=== PATIENT | female | born 1935 | race Caucasian/White ===

== ENCOUNTER → 2016-10-28 | Outpatient (CLI) | payer MEDICARE, BC ==
[2016-10-28 08:39] LABS: CHLORIDE,CL 105 mmol/L (98-110); SODIUM,NA 139 mmol/L (136-146)
== END ==
LOC: MW.CHIM 07:47
PROVIDERS: ATTEND Internal Medicine
DX: I10 Essential (primary) hypertension (principal); E03.9 Hypothyroidism, unspecified; I35.0 Nonrheumatic aortic (valve) stenosis; F41.8 Other specified anxiety disorders
CPT/HCPCS: 36415; 80053; 80061; 84443; 85025; 99214

== ENCOUNTER 2017-03-03 14:20 | Emergency (ER) | payer MEDICARE, BC ==
[2017-03-03] MEDS ORDERED: Sodium Chloride 0.9% 10 ML Syringe FLUSH PRN (14:36)
[2017-03-03] MEDS ORDERED: Sodium Chloride 0.9% 2.5 ML Syringe FLUSH PRN (14:36)
--- NOTE | 2017-03-03 14:38 | EDM.PDOC ---
ED HPI GENERAL MEDICAL PROBLEM - General Chief Complaint: Cardiovascular Problem Stated Complaint: HEART IS SKIPPING BEAT Time Seen by Provider: 03/03/17 14:44 Source of Information: Reports: Patient History Limitations: Reports: No Limitations - History of Present Illness INITIAL COMMENTS - FREE TEXT/NARRATIVE: HISTORY AND PHYSICAL: []81-year-old female presenting with heart skipping beats History of Present Illness: [] Patient has long history of missed beats. 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 Last echocardiogram was in October and no abnormalities were noted Patient had rheumatic fever as a baby and has had this murmurs difficulty of her since Review of Systems: As per history of present illness and below otherwise all systems reviewed and negative. Past medical history: As per history of present illness and as reviewed below otherwise noncontributory. Surgical history: As per history of present illness and as reviewed below otherwise noncontributory. Social history: No reported history of drug or alcohol abuse. Family history: As per history of present illness and as reviewed below otherwise noncontributory. Physical exam: HEENT: Atraumatic, normocehpalic, pupils reactive, negative for conjunctival pallor or scleral icterus, mucous membranes moist, throat clear, neck supple, nontender, trachea midline. Lungs: Clear to auscultation, breath sounds equal bilaterally, chest non tender. Heart: S1S2, regular, negative for clicks, rubs, or JVD. Abdomen: Soft, nondistended, nontender. Negative for masses or hepatossplenmegaly. Negative for costovertebral tenderness. Pelvis: Stable nontender. Genitourinary: Deferred. Rectal: Deferred Extremities: Atraumatic, negative for cords or calf pain. Neurovascular unremarkable. Neuro: Awake, alert, oriented. Cranial nerves II through XII unremarkable. Cerebellum unremarkable. Motor and sensory unremarkable throughout. Exam nonfocal. Discussed with patient and daughter that all of her lab work is fairly unremarkable. Her BNP is slightly elevated to 54 however she is already on Lasix. Diagnostics: [CBC CMP amylase lipase troponin chest x-ray] Therapeutics: [] Impression: [Heart palpitations resolved] Plan: []Follow-up with your primary care provider In 2 days Return if you having worsening symptoms any shortness of breath Definitive disposition and diagnosis as appropriate pending reevaluation and review of above. - Related Data Allergies Allergy/AdvReac Type Severity Reaction Status Date / Time niacin Allergy Cannot Verified 03/03/17 14:43 Remember tetanus toxoid, adsorbed Allergy Cannot Verified 03/03/17 14:43 Remember Home Meds: Home Meds Aspirin [Adult Low Dose Aspirin EC] 1 tab PO DAILY 11/26/14 [History] Levothyroxine Sodium [Synthroid] 1 tab PO DAILY 11/26/14 [History] Losartan [Cozaar] 1 tab PO DAILY 11/26/14 [History] Metoprolol Tartrate [Lopressor] 1 tab PO DAILY 11/26/14 [History] amLODIPine Besylate [Amlodipine Besylate] 1 tab PO DAILY 11/26/14 [History] atorvaSTATin [Lipitor] 20 mg PO BEDTIME 11/26/14 [History] Furosemide [Lasix] 20 mg PO ASDIRECTED PRN 07/20/15 [History] Past Medical History Cardiovascular History: Reports: Cardiomyopathy, Heart Murmur, Hypertension Other Cardiovascular History: [place] 2009 - Past Surgical History Cardiovascular Surgical History: Reports: Carotid Stents Social & Family History - Family History Family Medical History: Noncontributory - Tobacco Use Smoking Status *Q: Never Smoker - Recreational Drug Use Recreational Drug Use: No ED ROS GENERAL - Review of Systems Review Of Systems: ROS reveals no pertinent complaints other than HPI. ED EXAM, GENERAL - Physical Exam Exam: See Below (See dictation) Course - Vital Signs Last Recorded V/S: Last Vital Signs Temp 36.4 C 03/03/17 14:20 Pulse 64 03/03/17 14:20 Resp 18 03/03/17 14:20 BP 126/56 L 03/03/17 14:20 Pulse Ox 97 03/03/17 14:20 - Orders/Labs/Meds Orders: Active Orders 24 hr Category Date Time Status EKG Documentation Completion [RC] STAT Care 03/03/17 14:36 Active UA W/MICROSCOPIC [URIN] Stat Lab 03/03/17 14:37 Uncollected Sodium Chloride 0.9% [Saline Flush] Med 03/03/17 14:36 Active 10 ml FLUSH ASDIRECTED PRN Sodium Chloride 0.9% [Saline Flush] Med 03/03/17 14:36 Active 2.5 ml FLUSH ASDIRECTED PRN Saline Lock Insert [OM.PC] Stat Oth 03/03/17 14:36 Ordered Medication Orders Sodium Chloride (Saline Flush) 10 ml FLUSH ASDIRECTED PRN PRN Reason: Keep Vein Open Sodium Chloride (Saline Flush) 2.5 ml FLUSH ASDIRECTED PRN PRN Reason: Keep Vein Open Labs: Laboratory Tests 03/03/17 03/03/17 03/03/17 Range/Units 14:55 14:55 14:55 WBC 4.84 (4.0-11.0) K/uL RBC 4.58 (4.30-5.90) M/uL Hgb 13.4 (12.0-16.0) g/dL Hct 39.1 (36.0-46.0) % MCV 85.4 (80.0-98.0) fL MCH 29.3 (27.0-32.0) pg MCHC 34.3 (31.0-37.0) g/dL RDW Std Deviation 42.4 (28.0-62.0) fl RDW Coeff of Sarah 14 (11.0-15.0) % Plt Count 155 (150-400) K/uL MPV 12.20 H (7.40-12.00) fL Neut % (Auto) 45.4 L (48.0-80.0) % Lymph % (Auto) 42.6 H (16.0-40.0) % [place] % (Auto) 9.3 (0.0-15.0) % Eos % (Auto) 1.9 (0.0-7.0) % Baso % (Auto) 0.8 (0.0-1.5) % Neut # (Auto) 2.2 (1.4-5.7) K/uL Lymph # (Auto) 2.1 (0.6-2.4) K/uL [place] # (Auto) 0.5 (0.0-0.8) K/uL Eos # (Auto) 0.1 (0.0-0.7) K/uL Baso # (Auto) 0.0 (0.0-0.1) K/uL Nucleated RBC % 0.0 /100WBC Nucleated RBCs # 0 K/uL Sodium 138 (136-146) mmol/L Potassium 4.0 (3.5-5.1) mmol/L Chloride 105 (98-110) mmol/L Carbon Dioxide 22 (21-31) mmol/L BUN 10 (6.0-23.0) mg/dL Creatinine 0.7 (0.6-1.5) mg/dL Est Cr Clr Drug Dosing 49.01 mL/min Estimated GFR (MDRD) > 60.0 ml/min Glucose 155 H (60-110) mg/dL Calcium 9.6 (8.8-10.8) mg/dL Total Bilirubin 0.7 (0.1-1.5) mg/dL AST 23 (5-40) IU/L ALT 18 (8-54) IU/L Alkaline Phosphatase 80 (40-150) Troponin I (0.0-0.29) NG/ML B-Natriuretic Peptide 254 H (<100) PG/ML Total Protein 7.0 (6.0-8.0) g/dL Albumin 4.4 (3.4-4.8) g/dL Globulin 2.6 (2.0-3.5) g/dL Albumin/Globulin Ratio 1.7 (1.3-2.8) Lipase 18 (7-80) U/L 03/03/17 Range/Units 14:55 WBC (4.0-11.0) K/uL RBC (4.30-5.90) M/uL Hgb (12.0-16.0) g/dL Hct (36.0-46.0) % MCV (80.0-98.0) fL MCH (27.0-32.0) pg MCHC (31.0-37.0) g/dL RDW Std Deviation (28.0-62.0) fl RDW Coeff of Sarah (11.0-15.0) % Plt Count (150-400) K/uL MPV (7.40-12.00) fL Neut % (Auto) (48.0-80.0) % Lymph % (Auto) (16.0-40.0) % [place] % (Auto) (0.0-15.0) % Eos % (Auto) (0.0-7.0) % Baso % (Auto) (0.0-1.5) % Neut # (Auto) (1.4-5.7) K/uL Lymph # (Auto) (0.6-2.4) K/uL [place] # (Auto) (0.0-0.8) K/uL Eos # (Auto) (0.0-0.7) K/uL Baso # (Auto) (0.0-0.1) K/uL Nucleated RBC % /100WBC Nucleated RBCs # K/uL Sodium (136-146) mmol/L Potassium (3.5-5.1) mmol/L Chloride (98-110) mmol/L Carbon Dioxide (21-31) mmol/L BUN (6.0-23.0) mg/dL Creatinine (0.6-1.5) mg/dL Est Cr Clr Drug Dosing mL/min Estimated GFR (MDRD) ml/min Glucose (60-110) mg/dL Calcium (8.8-10.8) mg/dL Total Bilirubin (0.1-1.5) mg/dL AST (5-40) IU/L ALT (8-54) IU/L Alkaline Phosphatase (40-150) Troponin I < 0.10 (0.0-0.29) NG/ML B-Natriuretic Peptide (<100) PG/ML Total Protein (6.0-8.0) g/dL Albumin (3.4-4.8) g/dL Globulin (2.0-3.5) g/dL Albumin/Globulin Ratio (1.3-2.8) Lipase (7-80) U/L Meds: Medications Generic Name Dose Route Start Last Admin Trade Name Freq PRN Reason Stop Dose Admin Sodium Chloride 10 ml 03/03/17 14:36 Saline Flush FLUSH ASDIRECTED PRN Keep Vein Open Sodium Chloride 2.5 ml 03/03/17 14:36 Saline Flush FLUSH ASDIRECTED PRN Keep Vein Open Departure - Departure Time of Disposition: 15:56 Disposition: Home, Self-Care 01 Condition: Good Clinical Impression: Heart palpitations Referrals: PCP,None [Primary Care Provider] - Forms: ED Department Discharge - My Orders Last 24 Hours: My Active Orders 03/03/17 14:36 EKG Documentation Completion [RC] STAT Sodium Chloride 0.9% [Saline Flush] 10 ml FLUSH ASDIRECTED PRN Sodium Chloride 0.9% [Saline Flush] 2.5 ml FLUSH ASDIRECTED PRN Saline Lock Insert [OM.PC] Stat 03/03/17 14:37 UA W/MICROSCOPIC [URIN] Stat - Assessment/Plan Last 24 Hours: My Active Orders 03/03/17 14:36 EKG Documentation Completion [RC] STAT Sodium Chloride 0.9% [Saline Flush] 10 ml FLUSH ASDIRECTED PRN Sodium Chloride 0.9% [Saline Flush] 2.5 ml FLUSH ASDIRECTED PRN Saline Lock Insert [OM.PC] Stat 03/03/17 14:37 UA W/MICROSCOPIC [URIN] Stat
[2017-03-03 15:32] LABS: CHLORIDE,CL 105 mmol/L (98-110); SODIUM,NA 138 mmol/L (136-146)
--- NOTE | 2017-03-03 15:49 | CR ---
EXAMINATION: Portable chest radiograph. HISTORY: Shortness of breath. Comparison: 07/20/2015. FINDINGS: The trachea is midline. The cardiomediastinal silhouette is within normal limits. No pulmonary infilt rates, effusions or pneumothorax. Aortic calcifications are noted. Osseous structures appear unremarkable. IMPRESSION: No acute cardiopulmonary process.
[2017-03-03 17:31] VITALS: BP 154/99
== END 2017-03-03 16:15 | disposition home or self-care (01) ==
LOC: MW.ED 14:20
DX: R00.2 Palpitations (principal); I11.9 Hypertensive heart disease without heart failure; I25.2 Old myocardial infarction; Z95.5 Presence of coronary angioplasty implant and graft; Z79.82 Long term (current) use of aspirin; Z79.899 Other long term (current) drug therapy; Z88.7 Allergy status to serum and vaccine; Z88.8 Allergy status to other drugs, medicaments and biological substances
CPT/HCPCS: 36415; 71010; 71010-26; 80053; 83690; 83880; 84484; 85025; 93005; 99282; 99285-25

== ENCOUNTER 2019-03-15 11:38 | Emergency (ER) | payer BC, MEDICARE ==
[2019-03-15] MEDS ORDERED: Sodium Chloride 0.9% 10 ML Syringe FLUSH PRN (11:53)
[2019-03-15] MEDS ORDERED: Sodium Chloride 0.9% 2.5 ML Syringe FLUSH PRN (11:53)
--- NOTE | 2019-03-15 11:53 | EDM.PDOC ---
ED HPI GENERAL MEDICAL PROBLEM - General Chief Complaint: Cardiovascular Problem Stated Complaint: FAST HEART RATE Time Seen by Provider: 03/15/19 11:41 Source of Information: Reports: Patient History Limitations: Reports: No Limitations - History of Present Illness INITIAL COMMENTS - FREE TEXT/NARRATIVE: History of present illness: []Patient started having patient's last night. She awoke and did not feel well so she came to the ER. Patient denies any chest pain, shortness of breath, headache, dizziness, lightheadedness, nausea, vomiting, fevers or chills. Review of systems: As per history of present illness and below otherwise all systems reviewed and negative. Past medical history: As per history of present illness and as reviewed below otherwise noncontributory. Surgical history: As per history of present illness and as reviewed below otherwise noncontributory. Social history: No reported history of drug or alcohol abuse. Family history: As per history of present illness and as reviewed below otherwise noncontributory. Physical exam: General: Well developed, well nourished in NAD HEENT: Atraumatic, normocephalic, pupils reactive, negative for conjunctival pallor or scleral icterus, mucous membranes moist, throat clear, neck supple, nontender, trachea midline. Lungs: Clear to auscultation, breath sounds equal bilaterally, chest nontender. Heart: S1S2, regular, negative for clicks, rubs, or JVD. Abdomen: NABS, Soft, nondistended, nontender. Negative for masses or hepatosplenomegaly. Negative for costovertebral tenderness. Pelvis: Stable nontender. Genitourinary: Deferred. Rectal: Deferred. Extremities: Atraumatic, negative for cords or calf pain. Neurovascular unremarkable. Neuro: Awake, alert. Cranial nerves II through XII unremarkable. Cerebellum unremarkable. Motor and sensory unremarkable throughout. Exam nonfocal. Skin:warm and dry Diagnostics: EKG shows A. fib with RVR 130s and hypotensive at 97 systolic. CBC, chemistry, troponin+0.098, chest x-ray Therapeutics: IV fluid bolus, diltiazem, aspirin ED Course: improved Impression: afib with RVR Prescriptions: none Plan: transfer to [facility], Dr. Leger accepts Definitive disposition and diagnosis as appropriate pending reevaluation and review of above. - Related Data Allergies Allergy/AdvReac Type Severity Reaction Status Date / Time niacin Allergy Cannot Verified 03/15/19 11:42 Remember tetanus toxoid, adsorbed Allergy Cannot Verified 03/15/19 11:42 Remember Home Meds: Home Meds . 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: Endocrine/Metabolic History: Reports: Hypothyroidism - Infectious Disease History Infectious Disease History: Reports: Chicken Pox, Measles - Past Surgical History Cardiovascular Surgical History: Reports: Carotid Stents Social & Family History - Family History Family Medical History: Noncontributory - Tobacco Use Smoking Status *Q: Never Smoker - Caffeine Use Caffeine Use: Reports: Coffee - Recreational Drug Use Recreational Drug Use: No ED ROS GENERAL - Review of Systems Review Of Systems: See Below ED EXAM, GENERAL - Physical Exam Exam: See Below Course - Vital Signs Last Recorded V/S: Last Vital Signs Temp 97.0 F 03/15/19 11:40 Pulse 64 03/15/19 12:38 Resp 18 03/15/19 12:38 BP 104/47 L 03/15/19 12:38 Pulse Ox 100 03/15/19 12:38 - Orders/Labs/Meds Orders: Active Orders 24 hr Category Date Time Status Cardiac Monitoring [RC] . DIRECTED Care 03/15/19 11:53 Active EKG Documentation Completion [RC] STAT Care 03/15/19 11:53 Active Oxygen Therapy, ED [RC] ASDIRECTED Care 03/15/19 11:53 Active B-TYPE NATRIURETIC PEPTIDE,BNP [CHEM] Stat Lab 03/15/19 11:56 Received Sodium Chloride 0.9% [Normal Saline] 1,000 ml Med 03/15/19 12:15 Active IV ASDIRECTED Sodium Chloride 0.9% [Saline Flush] Med 03/15/19 11:53 Active 10 ml FLUSH ASDIRECTED PRN Sodium Chloride 0.9% [Saline Flush] Med 03/15/19 11:53 Active 2.5 ml FLUSH ASDIRECTED PRN Saline Lock Insert [OM.PC] Stat Oth 03/15/19 11:53 Ordered Medication Orders Sodium Chloride (Normal Saline) 1,000 mls @ 125 mls/hr IV ASDIRECTED TAY Last Admin: 03/15/19 12:24 Dose: 125 mls/hr Sodium Chloride (Saline Flush) 10 ml FLUSH ASDIRECTED PRN PRN Reason: Keep Vein Open Sodium Chloride (Saline Flush) 2.5 ml FLUSH ASDIRECTED PRN PRN Reason: Keep Vein Open Labs: Laboratory Tests 03/15/19 03/15/19 03/15/19 Range/Units 11:56 11:56 11:56 WBC 7.78 (4.0-11.0) K/uL RBC 5.00 (4.30-5.90) M/uL Hgb 13.9 (12.0-16.0) g/dL Hct 42.5 (36.0-46.0) % MCV 85.0 (80.0-98.0) fL MCH 27.8 (27.0-32.0) pg MCHC 32.7 (31.0-37.0) g/dL RDW Std Deviation 48.4 (28.0-62.0) fl RDW Coeff of Sarah 16 H (11.0-15.0) % Plt Count 256 (150-400) K/uL MPV 13.00 H (7.40-12.00) fL Neut % (Auto) 59.4 (48.0-80.0) % Lymph % (Auto) 29.8 (16.0-40.0) % [place] % (Auto) 8.4 (0.0-15.0) % Eos % (Auto) 1.5 (0.0-7.0) % Baso % (Auto) 0.9 (0.0-1.5) % Neut # (Auto) 4.6 (1.4-5.7) K/uL Lymph # (Auto) 2.3 (0.6-2.4) K/uL [place] # (Auto) 0.7 (0.0-0.8) K/uL Eos # (Auto) 0.1 (0.0-0.7) K/uL Baso # (Auto) 0.1 (0.0-0.1) K/uL Nucleated RBC % 0.0 /100WBC Nucleated RBCs # 0 K/uL INR 1.09 Sodium 141 (136-145) mmol/L Potassium 3.6 (3.5-5.1) mmol/L Chloride 100 (98-107) mmol/L Carbon Dioxide 21.9 (21.0-32.0) mmol/L BUN 8 (7.0-18.0) mg/dL Creatinine 1.0 (0.6-1.0) mg/dL Est Cr Clr Drug Dosing 35.98 mL/min Estimated GFR (MDRD) 52.8 ml/min Glucose 168 H (74-106) mg/dL Calcium 9.6 (8.5-10.1) mg/dL Total Bilirubin 1.0 (0.2-1.0) mg/dL AST 31 (15-37) IU/L ALT 19 (14-63) IU/L Alkaline Phosphatase 117 H (46-116) U/L Troponin I 0.098 H* (0.000-0.056) ng/mL Total Protein 8.0 (6.4-8.2) g/dL Albumin 4.4 (3.4-5.0) g/dL Globulin 3.6 (2.6-4.0) g/dL Albumin/Globulin Ratio 1.2 (0.9-1.6) Meds: Medications Generic Name Dose Route Start Last Admin Trade Name Freq PRN Reason Stop Dose Admin Sodium Chloride 1,000 mls @ 125 mls/hr 03/15/19 12:15 03/15/19 12:24 Normal Saline IV 125 mls/hr ASDIRECTED TAY Administration Sodium Chloride 10 ml 03/15/19 11:53 Saline Flush FLUSH ASDIRECTED PRN Keep Vein Open Sodium Chloride 2.5 ml 03/15/19 11:53 Saline Flush FLUSH ASDIRECTED PRN Keep Vein Open Discontinued Medications Generic Name Dose Route Start Last Admin Trade Name Freq PRN Reason Stop Dose Admin Aspirin 324 mg 03/15/19 13:09 03/15/19 13:19 Aspirin PO 03/15/19 13:10 324 mg ONETIME ONE Administration Diltiazem HCl 20 mg 03/15/19 12:14 03/15/19 12:20 Diltiazem IVPUSH 03/15/19 12:15 10 mg ONETIME ONE Administration Sodium Chloride 500 mls @ 999 mls/hr 03/15/19 11:55 03/15/19 12:10 Normal Saline IV 03/15/19 12:25 Not Given .Bolus ONE Departure - Departure Time of Disposition: 13:53 Disposition: DC/Tfer to Acute Hospital 02 Reason for Transfer *Q: Other Condition: Good Clinical Impression: Atrial fibrillation with rapid ventricular response Referrals: PCP,Unknown [Primary Care Provider] - Forms: ED Department Discharge - My Orders Last 24 Hours: My Active Orders 03/15/19 11:53 Cardiac Monitoring [RC] . DIRECTED EKG Documentation Completion [RC] STAT Oxygen Therapy, ED [RC] ASDIRECTED Sodium Chloride 0.9% [Saline Flush] 10 ml FLUSH ASDIRECTED PRN Sodium Chloride 0.9% [Saline Flush] 2.5 ml FLUSH ASDIRECTED PRN Saline Lock Insert [OM.PC] Stat 03/15/19 11:56 B-TYPE NATRIURETIC PEPTIDE,BNP [CHEM] Stat 03/15/19 12:15 Sodium Chloride 0.9% [Normal Saline] 1,000 ml IV ASDIRECTED - Assessment/Plan Last 24 Hours: My Active Orders 03/15/19 11:53 Cardiac Monitoring [RC] . DIRECTED EKG Documentation Completion [RC] STAT Oxygen Therapy, ED [RC] ASDIRECTED Sodium Chloride 0.9% [Saline Flush] 10 ml FLUSH ASDIRECTED PRN Sodium Chloride 0.9% [Saline Flush] 2.5 ml FLUSH ASDIRECTED PRN Saline Lock Insert [OM.PC] Stat 03/15/19 11:56 B-TYPE NATRIURETIC PEPTIDE,BNP [CHEM] Stat 03/15/19 12:15 Sodium Chloride 0.9% [Normal Saline] 1,000 ml IV ASDIRECTED
[2019-03-15] MEDS ORDERED: Sodium Chloride 0.9% 500 ML IV ONE (11:55)
[2019-03-15] MEDS ORDERED: Diltiazem 25 MG/5 ML SDV IVPUSH ONE (12:14)
[2019-03-15] MEDS ORDERED: Sodium Chloride 0.9% 1,000 ML IV SCH (12:15)
[2019-03-15 12:50] LABS: CARBON DIOXIDE,CO2 21.9 mmol/L (21.0-32.0); POTASSIUM,K 3.6 mmol/L (3.5-5.1)
[2019-03-15] MEDS ORDERED: Aspirin 81 MG Tab.Chew PO ONE (13:09)
--- NOTE | 2019-03-15 13:12 | CR ---
Chest: Portable view of the chest was obtained. Comparison: Prior chest x-ray of 03/03/17. Findings: Heart size slightly enlarged. Tortuous thoracic aorta is seen. Pulmonary vessel show slight congestion. Lungs otherwise are clear. Bony structures are grossly intact. Impression: Slightly enlarged heart with mild pulmonary vascular congestion. Diagnostic code #3 MTDD
[2019-03-15 14:31] VITALS: BP 119/48; PULSE 60
== END 2019-03-15 14:20 ==
LOC: MW.ED 11:38
DX: I48.91 Unspecified atrial fibrillation (principal); E03.9 Hypothyroidism, unspecified; I25.2 Old myocardial infarction; Z88.8 Allergy status to other drugs, medicaments and biological substances; Z88.7 Allergy status to serum and vaccine
CPT/HCPCS: 36415; 71045; 80053; 83880; 84484; 85025; 85610; 93005; 96361; 96374; 99285; A9270; J3490; J7040

== ENCOUNTER 2019-10-25 21:22 | Observation (INO) | payer MEDICARE, OTHER ==
--- NOTE | 2019-10-25 22:15 | EDM.PDOC ---
ED HPI GENERAL MEDICAL PROBLEM - General Chief Complaint: General Stated Complaint: EMS ARRIVAL Time Seen by Provider: 10/25/19 21:23 - History of Present Illness INITIAL COMMENTS - FREE TEXT/NARRATIVE: 84-year-old female presents after her daughter came home and found her covered in feces and feces all over her dwelling. According to daughter, she was incontinent of both urine and stool today this is a new symptom for her. Daughter reports 6 months or more of increasing confusion and inability to complete daily tasks. She often does repetitive activities like stacking silverware. She moves furniture into bizarre places. She does not answer the phone. She refuses to see a doctor. The daughter has been trying to spend more time with her to take care of her but ultimately the patient still lives alone. Tonight the daughter found the patient with large volume of feces in her living area. This was the last straw. The patient's daughter feels like she can no longer take care of the patient. She had already been in contact with facilities in my note with a contact name Jaymie Recio. Also Elise here in town from [facility]. The patient herself has no complaints. She denies any fever, chills, nausea, vomiting, chest pain, shortness of breath, pain with urination, headache, recent falls. Treatments DISTRIBUTION DRIVER: Reports: Other (see below) Other Treatments DISTRIBUTION DRIVER: blood sugar - Related Data Allergies Allergy/AdvReac Type Severity Reaction Status Date / Time niacin Allergy Cannot Verified 10/25/19 21:41 Remember tetanus toxoid, adsorbed Allergy Cannot Verified 10/25/19 21:41 Remember Home Meds: Home Meds . 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 ED EXAM, GENERAL - Physical Exam Exam: See Below Free Text/Narrative:: General: No acute distress. Comfortable. Heent: Examination revealed no pallor, no icterus, no lymphadenopathy. The patient has normal posterior pharynx, moist mucous membranes. Neck: Supple. No JVD. No rigidity. Heart: Normal rate. Reg rhythm. No murmurs appreciated. Lungs: Bilaterally clear to auscultation. No focal findings. Abdomen: Nontender, non-distended, soft, no CVA tenderness. Neuro: Pt is moving all four extremities. EOMI. PERRL. Normal speech. Patient does not know her daughter's birthday, the president, or the month. She is vaguely aware of where she is. Skin: Exposed areas appeared normally perfused, warm, normal color with no meaningful rashes or lesions. Extremities: Peripheral examination revealed no pedal edema. Peripheral pulses were 2+. Course - Vital Signs Last Recorded V/S: Last Vital Signs Temp 96.6 F L 10/25/19 21:25 Pulse 74 10/25/19 22:00 Resp 19 10/25/19 22:00 BP 139/70 10/25/19 22:00 Pulse Ox 96 10/25/19 22:00 - Orders/Labs/Meds Orders: Active Orders 24 hr Category Date Time Status Admission Status [Patient Status] [ADT] Stat ADT 10/25/19 23:13 Ordered Head wo Cont [CT] Stat Exams 10/25/19 23:15 Ordered AMMONIA VENOUS [CHEM] Stat Lab 10/25/19 22:25 Received UA W/CARO RFLX IF INDICATED [URIN] Stat Lab 10/25/19 21:51 Ordered Labs: Laboratory Tests 10/25/19 10/25/19 Range/Units 22:25 22:25 WBC 7.72 (4.0-11.0) K/uL RBC 4.15 L (4.30-5.90) M/uL Hgb 12.5 (12.0-16.0) g/dL Hct 37.8 (36.0-46.0) % MCV 91.1 (80.0-98.0) fL MCH 30.1 (27.0-32.0) pg MCHC 33.1 (31.0-37.0) g/dL RDW Std Deviation 48.9 (28.0-62.0) fl RDW Coeff of Sarah 15 (11.0-15.0) % Plt Count 114 L (150-400) K/uL Neut % (Auto) 64.9 (48.0-80.0) % Lymph % (Auto) 23.3 (16.0-40.0) % [place] % (Auto) 11.1 (0.0-15.0) % Eos % (Auto) 0.3 (0.0-7.0) % Baso % (Auto) 0.4 (0.0-1.5) % Neut # (Auto) 5.0 (1.4-5.7) K/uL Lymph # (Auto) 1.8 (0.6-2.4) K/uL [place] # (Auto) 0.9 H (0.0-0.8) K/uL Eos # (Auto) 0.0 (0.0-0.7) K/uL Baso # (Auto) 0.0 (0.0-0.1) K/uL Nucleated RBC % 0.0 /100WBC Nucleated RBCs # 0 K/uL Sodium 141 (136-145) mmol/L Potassium 3.7 (3.5-5.1) mmol/L Chloride 101 (98-107) mmol/L Carbon Dioxide 30.3 (21.0-32.0) mmol/L BUN 21 H (7.0-18.0) mg/dL Creatinine 0.9 (0.6-1.0) mg/dL Est Cr Clr Drug Dosing TNP Estimated GFR (MDRD) 59.5 ml/min Glucose 98 (74-106) mg/dL Calcium 8.9 (8.5-10.1) mg/dL Magnesium 2.3 (1.8-2.4) mg/dL Total Bilirubin 0.7 (0.2-1.0) mg/dL AST 29 (15-37) IU/L ALT 27 (14-63) IU/L Alkaline Phosphatase 65 (46-116) U/L Total Protein 7.1 (6.4-8.2) g/dL Albumin 3.9 (3.4-5.0) g/dL Globulin 3.2 (2.6-4.0) g/dL Albumin/Globulin Ratio 1.2 (0.9-1.6) Departure - Departure Time of Disposition: 23:05 Disposition: [facility] Condition: Fair Clinical Impression: Dementia Qualifiers: Dementia type: unspecified type Dementia behavioral disturbance: with behavioral disturbance Qualified Code(s): F03.91 - Unspecified dementia with behavioral disturbance - Discharge Information Referrals: PCP,None [Primary Care Provider] - Forms: ED Department Discharge Sepsis Event Note - Evaluation Sepsis Screening Result: No Definite Risk - Focused Exam Vital Signs: Vital Signs Temp Pulse Resp BP Pulse Ox 10/25/19 22:00 74 19 139/70 96 10/25/19 21:45 77 19 107/68 96 10/25/19 21:25 96.6 F L 79 21 H 113/65 92 L Date Exam was Performed: 10/25/19 Time Exam was Performed: 23:22 - My Orders Last 24 Hours: My Active Orders 10/25/19 21:51 UA W/CARO RFLX IF INDICATED [URIN] Stat 10/25/19 22:25 AMMONIA VENOUS [CHEM] Stat 10/25/19 23:13 Admission Status [Patient Status] [ADT] Stat 10/25/19 23:15 Head wo Cont [CT] Stat - Assessment/Plan Last 24 Hours: My Active Orders 10/25/19 21:51 UA W/CARO RFLX IF INDICATED [URIN] Stat 10/25/19 22:25 AMMONIA VENOUS [CHEM] Stat 10/25/19 23:13 Admission Status [Patient Status] [ADT] Stat 10/25/19 23:15 Head wo Cont [CT] Stat
[2019-10-25 22:53] LABS: BLOOD UREA NITROGEN,BUN 21 mg/dL (7.0-18.0); CARBON DIOXIDE,CO2 30.3 mmol/L (21.0-32.0); CHLORIDE,CL 101 mmol/L (98-107); GLUCOSE RANDOM 98 mg/dL (74-106); POTASSIUM,K 3.7 mmol/L (3.5-5.1); SODIUM,NA 141 mmol/L (136-145)
--- NOTE | 2019-10-25 23:50 | CT ---
INDICATION: altered mental status CT HEAD WITHOUT CONTRAST TECHNIQUE: Multiple axial CT images were performed through the head without intravenous contrast administration. COMPARISON: No previous studies are currently available for comparison. FINDINGS: No acute intracranial hemorrhage is identified. No extra-axial collections are evident and there is no mass effect or midline shift. There is mild diffuse age-related brain atrophy. Ventricular size and configuration are within normal limits for the patient`s age. [place]ana-white differentiation is within normal limits. There is patchy hypodensity in the periventricular white matter, a nonspecific finding which most likely reflects chronic small vessel ischemic change. Intracranial atherosclerotic vascular calcifications are noted. Osseous structures are within normal limits and no fractures are seen. Included portions of the paranasal sinuses and mastoid air cells are normally aerated. IMPRESSION: 1. No acute intracranial abnormality identified. 2. Mild age-related brain atrophy, white matter hypodensity consistent with chronic small vessel ischemic change, and intracranial atherosclerotic vascular calcifications. MILENA TALAVERA MD [facility] Dictated by: Phil Talavera MD @ 10/25/2019 23:50:13 (Electronically Signed)
--- NOTE | 2019-10-26 08:50 | PCM.HP.2 ---
<Veronique Gee - Last Filed: 10/26/19 10:30> H&P History of Present Illness - General Date of Service: 10/26/19 Admit Problem/Dx: Admission Diagnosis/Problem Admission Diagnosis/Problem Dementia - History of Present Illness Initial Comments - Free Text/Narative: The patient is a 84 year old female with past medical history dementia, CAD, cardiomyopathy, and HTN who was brought in by daughter last night after she found her confused and with stool all over the house. Per the daughter over the last year, she has seen a decline in her mother. She has been trying to stack silverware around the house to tidy up, pulling pictures out of frames and albums, turning off the heat in the winter, not answering the phones, not always recognizing the daughter, and not flushing the toilet causing them to backup. Looking for her parents and . Daughter reports she feeds herself, but doesn't cook, doesn't use stove/oven, will eat straight out of the can. Daughter handles finances. Daughter is unsure which medications she takes. They are delivered in the mail. Daughter reports many bottles at home, thinks the patient just takes them when she needs them. Daughter has been in touch with adult protective services and a Alzheimer unit in [place]. Daughter thinks she may have thyroid disorder. When speaking with the patient this morning, she states she feels fine and doesn't know why she is here. She thinks things are going fine at home. She is only oriented to person. She states she wants to be DNR/DNI. The daughter confirmed this. In the ER, work up revealed no leukocytosis, anemia, major electrolyte abnormalities, ammonia level within normal limits. Head CT showed no acute intracranial findings. - Related Data Allergies/Adverse Reactions: Allergies Allergy/AdvReac Type Severity Reaction Status Date / Time niacin Allergy Cannot Verified 10/26/19 01:51 Remember tetanus toxoid, adsorbed Allergy Cannot Verified 10/26/19 01:51 Remember Home Medications: Home Meds Levothyroxine Sodium [Synthroid] 75 mcg PO DAILY 10/26/19 [History] atorvaSTATin [Lipitor] 20 mg PO DAILY 10/26/19 [History] Past Medical History - Past Health History Medical/Surgical History: Denies Medical/Surgical History (unable to fully obtain due to mental status) HEENT History: Reports: Cataract Cardiovascular History: Reports: Cardiomyopathy, Heart Murmur, Hypertension, ME Other Cardiovascular History: ME 2010 [employer] History: Reports: Psychiatric History: Reports: Dementia Endocrine/Metabolic History: Reports: Hypothyroidism - Infectious Disease History Infectious Disease History: Reports: Chicken Pox, Measles - Past Surgical History Cardiovascular Surgical History: Reports: Carotid Stents Social & Family History - Family History Family Medical History: Noncontributory - Tobacco Use Smoking Status *Q: Never Smoker Used Tobacco, but Quit: Yes Month/Year Tobacco Last Used: per daughter pt quit "a long time ago" Second Hand Smoke Exposure: No - Caffeine Use Caffeine Use: Reports: None - Recreational Drug Use Recreational Drug Use: No H&P Review of Systems - Review of Systems: Review Of Systems: See Below General: Reports: No Symptoms HEENT: Reports: No Symptoms Pulmonary: Reports: No Symptoms Cardiovascular: Reports: No Symptoms Gastrointestinal: Reports: No Symptoms Genitourinary: Reports: No Symptoms Musculoskeletal: Reports: No Symptoms Skin: Reports: No Symptoms Psychiatric: Reports: No Symptoms Neurological: Reports: No Symptoms Hematologic/Lymphatic: Reports: No Symptoms Immunologic: Reports: No Symptoms Exam - Exam Exam: See Below - Vital Signs Vital Signs: Last Vital Signs Temp 98.8 F 10/26/19 05:29 Pulse 72 10/26/19 05:29 Resp 18 10/26/19 05:29 BP 141/66 H 10/26/19 05:29 Pulse Ox 98 10/26/19 05:29 Weight: 53.66 kg - Exam General: Alert, Cooperative. No: Oriented Lungs: Clear to Auscultation, Normal Respiratory Effort Cardiovascular: Regular Rate, Regular Rhythm GI/Abdominal Exam: Normal Bowel Sounds, Soft, Non-Tender Extremities: No Pedal Edema Skin: Warm, Dry, Intact Neuro Extensive - Mental Status: Alert, Other (oriented to person only) Psychiatric: Alert, Normal Affect, Normal Mood - Patient Data Lab Results Last 24 hrs: Laboratory Results - last 24 hr 10/25/19 10/25/19 10/25/19 Range/Units 22:25 22:25 22:25 WBC 7.72 (4.0-11.0) K/uL RBC 4.15 L (4.30-5.90) M/uL Hgb 12.5 (12.0-16.0) g/dL Hct 37.8 (36.0-46.0) % MCV 91.1 (80.0-98.0) fL MCH 30.1 (27.0-32.0) pg MCHC 33.1 (31.0-37.0) g/dL RDW Std Deviation 48.9 (28.0-62.0) fl RDW Coeff of Sarah 15 (11.0-15.0) % Plt Count 114 L (150-400) K/uL Neut % (Auto) 64.9 (48.0-80.0) % Lymph % (Auto) 23.3 (16.0-40.0) % [place] % (Auto) 11.1 (0.0-15.0) % Eos % (Auto) 0.3 (0.0-7.0) % Baso % (Auto) 0.4 (0.0-1.5) % Neut # (Auto) 5.0 (1.4-5.7) K/uL Lymph # (Auto) 1.8 (0.6-2.4) K/uL [place] # (Auto) 0.9 H (0.0-0.8) K/uL Eos # (Auto) 0.0 (0.0-0.7) K/uL Baso # (Auto) 0.0 (0.0-0.1) K/uL Nucleated RBC % 0.0 /100WBC Nucleated RBCs # 0 K/uL Sodium 141 (136-145) mmol/L Potassium 3.7 (3.5-5.1) mmol/L Chloride 101 (98-107) mmol/L Carbon Dioxide 30.3 (21.0-32.0) mmol/L BUN 21 H (7.0-18.0) mg/dL Creatinine 0.9 (0.6-1.0) mg/dL Est Cr Clr Drug Dosing TNP Estimated GFR (MDRD) 59.5 ml/min Glucose 98 (74-106) mg/dL Calcium 8.9 (8.5-10.1) mg/dL Magnesium 2.3 (1.8-2.4) mg/dL Total Bilirubin 0.7 (0.2-1.0) mg/dL AST 29 (15-37) IU/L ALT 27 (14-63) IU/L Alkaline Phosphatase 65 (46-116) U/L Ammonia <17 L (19-54) ug/dL Total Protein 7.1 (6.4-8.2) g/dL Albumin 3.9 (3.4-5.0) g/dL Globulin 3.2 (2.6-4.0) g/dL Albumin/Globulin Ratio 1.2 (0.9-1.6) Result Diagrams: 10/25/19 22:25 10/25/19 22:25 Sepsis Event Note - Evaluation Sepsis Screening Result: No Definite Risk - Focused Exam Vital Signs: Vital Signs Temp Pulse Resp BP Pulse Ox 10/26/19 05:29 98.8 F 72 18 141/66 H 98 10/26/19 01:06 98.2 F 73 18 112/64 97 10/25/19 23:57 97.9 F 69 18 116/67 98 10/25/19 22:00 74 19 139/70 96 10/25/19 21:45 77 19 107/68 96 10/25/19 21:25 96.6 F L 79 21 H 113/65 92 L Date Exam was Performed: 10/26/19 Time Exam was Performed: 10:30 Problem List Initiated/Reviewed/Updated: Yes Orders Last 24hrs: Active Orders 24 hr Category Date Time Status Admission Status [Patient Status] [ADT] Stat ADT 10/25/19 23:13 Active Antiembolic Devices [RC] PER UNIT ROUTINE Care 10/26/19 01:00 Active Oxygen Therapy [RC] PRN Care 10/26/19 01:00 Active VTE/DVT Education [RC] PER UNIT ROUTINE Care 10/26/19 01:00 Active Vital Signs [RC] Q4H Care 10/26/19 01:00 Active Regular Diet [DIET] Diet 10/26/19 Breakfast Active BASIC METABOLIC PANEL,BMP [CHEM] AM Lab 10/26/19 05:11 Ordered CBC WITH AUTO DIFF [HEME] AM Lab 10/26/19 05:11 Ordered TSH [CHEM] Routine Lab 10/26/19 08:28 Ordered UA W/CARO RFLX IF INDICATED [URIN] Stat Lab 10/25/19 21:51 Ordered Sequential Compression Device [OM.PC] Per Unit Routine Oth 10/26/19 01:00 Ordered Assessment/Plan Comment:: 1. Admit for observation 2. Code status- DNR/DNI 3. Vitals per routine 4. I/Os per routine 5. Diet- regular 6. DVT prophylaxis with SCDs 7. Confusion- work up thus far has been negative. UA pending. Daughter thinks there may be a history of hypothyroidism- will check TSH. 8. Inability to perform ADLs- working with daughter and case management on discharge planning. Will get COVID test in case she gets admitted to [facility]. <Jim Marcum - Last Filed: 10/28/19 19:03> H&P History of Present Illness - General Admit Problem/Dx: Admission Diagnosis/Problem Admission Diagnosis/Problem Dementia Exam - Vital Signs Vital Signs: Last Vital Signs Temp 37.0 C 10/27/19 11:30 Pulse 75 10/27/19 11:30 Resp 16 10/27/19 11:30 BP 101/53 L 10/27/19 11:30 Pulse Ox 95 10/27/19 11:30 - Patient Data Result Diagrams: 10/25/19 22:25 10/25/19 22:25 - Free Text/Narrative Note: I have seen and examined the patient. I have discussed findings and treatment plan with resident. I agree with the assessment and plan as outlined in the following note.
[2019-10-27] MEDS ORDERED: Haloperidol Lactate 5 MG/ML SDV IM PRN (00:08)
[2019-10-27] MEDS ORDERED: Levothyroxine 75 MCG Tab PO SCH (07:30)
--- NOTE | 2019-10-27 08:31 | PCM.DCSUM1 ---
<Veronique Gee - Last Filed: 10/27/19 08:28> Discharge Summary - Hospital Course HPI Initial Comments: Admission Date: 10/25/19 Discharge Date: 10/27/19 Admission Diagnosis: 1. Confusion 2. Inability to perform ADL Discharge Diagnosis: 1. Confusion 2. Inability to perform ADL Procedures: None Consults: None Hospital Course: The patient is a 84 year old female with past medical history of dementia, CAD, cardiomyopathy, and HTN who was brought in by daughter after she found her confused and with stool all over the house. Per the daughter over the last year, she has seen a decline in her mother. In the ER, work up revealed no leukocytosis, anemia, or major electrolyte abnormalities, and ammonia level within normal limits. Head CT showed no acute intracranial findings. She was admitted to the medical floor for observation. Patient is oriented to person only. She refused IV and blood draws. UA was obtained and showed no sign of infection. She did have an episode of sundowning where she became very agitated and required Haldol. We worked with the daughter and case management to find placement. The daughter had already been working with [facility] in [place] and requested she be placed there. COIVD testing was done and negative. Patient requires ambulance transfer to [facility] due to confusion. Disposition: [facility] in [place] Discharge Condition: vitals stable, tolerating oral diet, ambulating without difficulty. Discharge Instructions: regular diet as tolerated, activity as tolerated, take medications as prescribed. Symptoms to report to physician include fever/chills , chest pain, shortness of breath, abdominal pain, erythema, drainage/discharge , worsening confusion, or not improving as expected. Discharge Medications: Follow-up: - Discharge Data Discharge Date: 10/27/19 Discharge Disposition: DC/Tfer to SNF 03 Condition: Fair - Referral to Home Health Primary Care Physician: PCP None - Patient Instructions Diet: Regular Diet as Tolerated Activity: As Tolerated Showering/Bathing: May Shower Notify Provider of: Fever, Increased Pain, Swelling and Redness, Drainage, Nausea and/or Vomiting Other/Special Instructions: Additional symptoms include chest pain, shortness of breath, or abdominal pain. - Discharge Plan *PRESCRIPTION DRUG MONITORING PROGRAM REVIEWED*: No *COPY OF PRESCRIPTION DRUG MONITORING REPORT IN PATIENT ANTHONY: No Home Medications: Home Meds Levothyroxine Sodium [Synthroid] 75 mcg PO DAILY 10/26/19 [History] atorvaSTATin [Lipitor] 20 mg PO DAILY 10/26/19 [History] Referrals: PCP,None [Primary Care Provider] - - Discharge Summary/Plan Comment DC Time >30 min.: No - Patient Data Vitals - Most Recent: Last Vital Signs Temp 99.1 F 10/26/19 20:00 Pulse 87 10/26/19 20:00 Resp 18 10/26/19 20:00 BP 127/59 L 10/26/19 20:00 Pulse Ox 95 10/26/19 20:00 Weight - Most Recent: 53.66 kg I&O - Last 24 hours: Intake & Output 10/26/19 10/27/19 10/27/19 22:59 06:59 14:59 Intake Total 1390 350 Output Total 200 200 Balance 1190 150 Lab Results - Last 24 hrs: Laboratory Results - last 24 hr 10/26/19 10/26/19 Range/Units 09:47 10:55 Urine Color DARK YELLOW Urine Appearance CLEAR Urine pH 6.0 (5.0-8.0) Ur Specific [place] 1.020 (1.001-1.035) Urine Protein NEGATIVE (NEGATIVE) mg/dL Urine Glucose (UA) NEGATIVE (NEGATIVE) mg/dL Urine Ketones NEGATIVE (NEGATIVE) mg/dL Urine Occult Blood NEGATIVE (NEGATIVE) Urine Nitrite NEGATIVE (NEGATIVE) Urine Bilirubin NEGATIVE (NEGATIVE) Urine Urobilinogen 1.0 (<2.0) EU/dL Ur Leukocyte Esterase NEGATIVE (NEGATIVE) SARS-CoV-2 RNA (RT-PCR) NEGATIVE (NEGATIVE) Med Orders - Current: Current Medications Atorvastatin Calcium (Lipitor) 20 mg PO BEDTIME TAY Haloperidol Lactate (Haldol) 1 - 5 mg IM Q6H PRN PRN Reason: Agitation Last Admin: 10/27/19 00:27 Dose: 5 mg Levothyroxine Sodium (Levothyroxine) 75 mcg PO ACBREAKFAST TAY Discontinued Medications Amlodipine Besylate (Norvasc) 5 mg PO DAILY TAY <Jim Marcum - Last Filed: 10/28/19 19:08> Discharge Summary - Referral to Home Health Primary Care Physician: PCP None - Patient Data Vitals - Most Recent: Last Vital Signs Temp 37.0 C 10/27/19 11:30 Pulse 75 10/27/19 11:30 Resp 16 10/27/19 11:30 BP 101/53 L 10/27/19 11:30 Pulse Ox 95 10/27/19 11:30 Med Orders - Current: Current Medications Discontinued Medications Amlodipine Besylate (Norvasc) 5 mg PO DAILY TAY Atorvastatin Calcium (Lipitor) 20 mg PO BEDTIME TAY Haloperidol Lactate (Haldol) 1 - 5 mg IM Q6H PRN PRN Reason: Agitation Last Admin: 10/27/19 00:27 Dose: 5 mg Levothyroxine Sodium (Levothyroxine) 75 mcg PO ACBREAKFAST TAY Last Admin: 10/27/19 10:27 Dose: 75 mcg - Free Text/Narrative Note: I have seen and examined the patient. I have discussed findings and treatment plan with resident. I agree with the assessment and plan as outlined in the following note.
[2019-10-27] MEDS ORDERED: amLODIPine 5 MG Tab PO SCH (09:00)
[2019-10-27 11:32] VITALS: BP 101/53; PULSE 75
[2019-10-27] MEDS ORDERED: atorvaSTATin 20 MG Tab PO SCH (21:00)
== END 2019-10-27 12:10 ==
LOC: MW.ED 21:22 → MW.MS 23:13
PROVIDERS: ADMIT Internal Medicine; ATTEND Internal Medicine
DX: R41.0 Disorientation, unspecified (principal); F03.91 Unspecified dementia, unspecified severity, with behavioral disturbance; I10 Essential (primary) hypertension; E03.9 Hypothyroidism, unspecified; Z66 Do not resuscitate; Z11.59 Encounter for screening for other viral diseases; Z86.79 Personal history of other diseases of the circulatory system; Z91.048 Other nonmedicinal substance allergy status; Z87.891 Personal history of nicotine dependence; Z73.6 Limitation of activities due to disability; Z79.890 Hormone replacement therapy; Z79.899 Other long term (current) drug therapy; Z88.7 Allergy status to serum and vaccine
CPT/HCPCS: 36415; 70450; 80053; 81003; 82140; 83735; 85025; 96372; 99285; A9270; G0378; J1630; U0002; 99284